=== PATIENT | male | born 1945 | race Caucasian/White ===

== ENCOUNTER 2018-08-31 21:55 | Emergency (ER) | payer OTHER ==
[~2018-08-31] VITALS: Ht 170.2 cm; Wt 75.7 kg
[2018-08-31 22:25] VITALS: BP 145/65
[2018-08-31 23:35] LABS: BASOPHILS % (AUTO) 0.3 % (0.0-2.0); EOSINOPHILS % (AUTO) 0.5 % (0.0-4.0); HEMATOCRIT 35.6 % (36-52); HEMOGLOBIN 11.9 g/dL (12.0-18.0); LYMPHOCYTES # (AUTO) 1.2 K/uL (2.0-11.5); LYMPHOCYTES % (AUTO) 11.3 % (20.5-51.1); MEAN CORPUSCULAR HEMOGLOBIN 37 pg (27-31); MEAN CORPUSCULAR HGB CONC 33 g/dL (33-37); MEAN CORPUSCULAR VOLUME 109.9 fL (80-94); MONOCYTES # (AUTO) 0.8 K/uL (0.8-1.0); MONOCYTES % (AUTO) 8.1 % (1.7-9.3); NEUTROPHILS # (AUTO) 8.4 K/uL (1.8-7.7); NEUTROPHILS % (AUTO) 79.8 % (42.2-75.2); PLATELET COUNT (AUTO) 248 K/uL (140-450); RED BLOOD CELL COUNT(AUTO) 3.24 MIL/uL (4.20-6.10); RED CELL DISTRIBUTION WIDTH 12.8 % (11.6-13.7); WHITE BLOOD COUNT (AUTO) 10.5 K/uL (4.8-10.8)
[2018-08-31 23:44] LABS: ANION GAP 7.7 (8-16); CARBON DIOXIDE 31.4 mmol/L (21-32); CHLORIDE 103 mmol/L (98-107); GLUCOSE 106 mg/dL (74-106); POTASSIUM 4.1 mmol/L (3.5-5.1); SODIUM SERUM 138 mmol/L (136-145); UREA NITROGEN, BLOOD 18 mg/dL (7-18)
[2018-08-31 23:47] LABS: APPEARANCE,URINE CLEAR (CLEAR); BILIRUBIN,URINE NEGATIVE (NEGATIVE); BLOOD, URINE NEGATIVE (NEGATIVE); COLOR,URINE YELLOW (YELLOW); LEUKOCYTE ESTERASE ,URINE NEGATIVE (NEGATIVE); NITRITE, URINE NEGATIVE (NEGATIVE); PH,URINE 5.5 (5.0-9.0); UGLUCOSE NEGATIVE (NEGATIVE)
[2018-08-31 23:51] LABS: ALBUMIN 3.9 g/dL (3.4-5.0); ASPARTATE AMINOTRANSFERASE 50 U/L (15-37); LIPASE 202 U/L (73-393); TOTAL BILIRUBIN 0.4 mg/dL (0.0-1.0)
[2018-09-01 03:56] VITALS: BP 136/73
== END 2018-09-01 03:56 | disposition home or self-care (01) ==
LOC: MED 21:55
DX: K29.70 Gastritis, unspecified, without bleeding (principal)
CPT/HCPCS: 36415; 80053; 81003; 83690; 85025; 99284

== ENCOUNTER 2020-10-02 13:35 | Emergency (ER) | payer OTHER, SELFPAY ==
[~2020-10-02] VITALS: Ht 177.8 cm; Wt 73.0 kg
[~2020-10-02 13:35] MED LIST: APIX2.5 PO; ATOR10TA51 PO; AZIT250T3 PO; CEPH250C16 PO; FERR240T12 PO; HYDR500C PO; LACT10SO1 PO; LISI10TA11 PO
[2020-10-02 13:48] VITALS: BP 146/84
[2020-10-02] MEDS ORDERED: MECLIZINE 25 MG TAB PO ONE (14:30)
[2020-10-02] MEDS ORDERED: diazePAM 5 MG TAB PO ONE (15:10)
[2020-10-02 16:12] VITALS: BP 123/82
== END 2020-10-02 16:12 | disposition home or self-care (01) ==
LOC: MED 13:35
DX: H81.10 Benign paroxysmal vertigo, unspecified ear (principal); I10 Essential (primary) hypertension; Z79.899 Other long term (current) drug therapy
CPT/HCPCS: 99283; J8597